=== PATIENT | female | born 2000 | race African-American/Black ===

== ENCOUNTER → 2021-03-08 | Outpatient (CLI) | payer MEDICAID ==
--- NOTE | 2021-03-08 11:53 | RAD ---
EXAM: Pelvic sonogram. HISTORY: Irregular menses status post elective . TECHNIQUE: Transabdominal and transvaginal sonographic imaging of the pelvis was performed. COMPARISON: None. FINDINGS: The uterus measures 7.2 x 4.2 x 3.2 cm. The endometrial stripe measures 6.9 mm in thickness . The ovaries are normal in size and demonstrate normal blood flow. There are multiple ovarian follic les. There is a physiologic dominant right ovarian follicle measuring 1.4 cm. There is trace pelvic f ree fluid. IMPRESSION: 1. 1.4 cm physiologic dominant right ovarian follicle and physiologic trace pelvic free fluid. 2. Otherwise, unremarkable pelvic sonogram. Electronically signed by: Isabell Cruz MD (03/08/2021 11:51 AM) [id number]
== END ==
LOC: US 11:00
PROVIDERS: ATTEND Family Medicine
DX: N92.6 Irregular menstruation, unspecified (principal); Z98.890 Other specified postprocedural states
CPT/HCPCS: 76830; 76856

== ENCOUNTER 2021-05-23 03:07 | Emergency (ER) | payer MEDICAID, OTHER ==
[~2021-05-23] VITALS: Ht 157.5 cm; Wt 92.0 kg
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
[2021-05-23 03:15] VITALS: BP 112/70
[2021-05-23] MEDS ORDERED: ONDA4TAB7 PO (04:50)
[2021-05-23] MEDS ORDERED: HYDR-2155 PO (04:51)
[2021-05-23 04:57] LABS: BASO % 1 % (0-3); EOS % 0 % (0-3); HEMATOCRIT 31.6 % (36.0-47.0); HEMOGLOBIN 10.3 g/dL (12.0-15.5); LYMPH # 1.1 x10^3/uL (1.0-4.8); LYMPH % 14 % (24-48); MEAN CORPUSCULAR HEMOGLOBIN 28 pg (25-35); MEAN CORPUSCULAR HGB CONC 32 g/dL (31-37); MEAN CORPUSCULAR VOLUME 86 fL (79-100); MONO # 0.3 x10^3/uL (0.0-1.1); MONO % 4 % (0-9); NEUT # 6.5 x10^3uL (1.8-7.7); NEUT % 81 % (31-73); PLATELET COUNT 186 x10^3/uL (140-400); RED CELL DISTRIBUTION WIDTH 13.7 % (11.5-14.5)
[2021-05-23] MEDS ORDERED: FAMOTIDINE 20 MG/2 ML VIAL IVP ONE (05:00)
[2021-05-23] MEDS ORDERED: IV RINGERS SOLUTION,LACTATED 1,000 ML IV SCH (05:00)
[2021-05-23] MEDS ORDERED: ONDANSETRON PF 4 MG/2 ML VIAL. IVP ONE ×2 (05:00→08:30)
--- NOTE | 2021-05-23 05:00 | EKG ---
[address] [address] Test Date: 2021-05-23 Test Time: 03:52:40 Pat Name: STEVE BRAND Department: Room: Gender: F Hospital Social Worker: : 2000 Requested By: AISHWARYA POE Order Number: [id number] Reading MD: Measurements Intervals [place] Rate: 71 P: 38 PA: 148 QRS: 31 QRSD: 82 T: 51 QT: 444 QTc: 483 Interpretive Statements SINUS RHYTHM T ABNORMALITY IN ANTEROSEPTAL LEADS PROLONGED QT ABNORMAL ECG RI6.02 No previous ECG available for comparison
[2021-05-23 05:06] LABS: CALCIUM 9.3 mg/dL (8.5-10.1); CREATININE 0.7 mg/dL (0.6-1.0); GFR 130.4; POTASSIUM 3.4 mmol/L (3.5-5.1)
[2021-05-23 05:11] LABS: DIRECT BILIRUBIN 0.1 mg/dL (0.0-0.2); TOTAL BILIRUBIN 0.3 mg/dL (0.2-1.0); TOTAL PROTEIN 7.9 g/dL (6.4-8.2)
[2021-05-23 06:38] LABS: INFLUENZA A PATIENT NEGATIVE (NEGATIVE); INFLUENZA B PATIENT NEGATIVE (NEGATIVE)
--- NOTE | 2021-05-23 08:00 | RAD ---
Study: US OB <14 WKS +TV DATE: 05/23/2021 6:40 AM INDICATION: Abdominal pain. Bleeding. Positive test. COMPARISON: Pelvic ultrasound 03/08/2021 TECHNIQUE: Transabdominal and transvaginal ultrasonography of the pelvis was performed. Color Doppler and duplex were utilized as appropriate. FINDINGS: Reported beta hCG of 988. The uterus measures 8.8 x 5.9 x 4.8 cm. Thickened and heterogeneous endometrium measuring up to 1.9 c m near the fundal tip and potentially with hemorrhage along the canal. No well delineated intrauterin e gestational sac. Unremarkable myometrium. The cervix measures 4 cm in length. The right ovary measures 3.5 x 1.4 x 1.6 cm and the left ovary 2.7 x 2.5 x 1.3 cm. Doppler flow is ma intained to both ovaries. No complex cyst or mass at either adnexa. A few follicles. No free pelvic fluid. IMPRESSION: Thickened endometrium likely with blood products along the endometrial canal. No intrauterine gestati onal sac is identified or abnormality at either adnexa to indicate an ectopic. Based on the beta HCG, a gestational sac would not be expected to be seen but given potential hemorrhage along the canal, a failed first trimester is the leading concern. Follow-up is needed such as in two weeks, o r sooner if there is persistent bleeding, and trending of the beta HCG. Electronically signed by: ADELINE HYATT MD (05/23/2021 7:57 AM) [facility]
[2021-05-24 20:13] LABS: CHLAMYDIA PROBE Negative (Negative)
== END 2021-05-23 08:34 | disposition home or self-care (01) ==
LOC: ER 03:07
DX: O36.4XX0 Maternal care for intrauterine death, not applicable or unspecified (principal); O21.9 Vomiting of pregnancy, unspecified; O99.011 Anemia complicating pregnancy, first trimester; D64.9 Anemia, unspecified; Z3A.09 9 weeks gestation of pregnancy; Z20.822 Contact with and (suspected) exposure to COVID-19
CPT/HCPCS: 36415; 76801; 76817; 80048; 80076; 81025; 82550; 83690; 84484; 84702; 85025; 86900; 86901; 87426; 87491; 87591; 87804; 93005; 96361; 96374; 96375; 96376; 99285; C9803; J2405; J3490; J7120; U0003

== ENCOUNTER 2021-06-12 21:00 | Emergency (ER) | payer OTHER ==
[~2021-06-12] VITALS: Ht 157.5 cm; Wt 84.5 kg
[~2021-06-12 21:00] MED LIST: HYDR-2155 PO; ONDA4TAB7 PO
--- NOTE | 2021-06-12 21:06 | PHYS DOC ---
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 [] HENT: Normocephalic, atraumatic, bilateral external ears normal, oropharynx moist, no oral exudates, nose normal. [] Eyes: conjunctiva normal, no discharge. [] Neck: Normal range of motion, no tenderness, supple, no stridor. [] Cardiovascular:Heart rate regular rhythm, no murmur [] Lungs & Thorax: Bilateral breath sounds clear to auscultation [] Abdomen: soft, no tenderness, no masses, no pulsatile masses. [] Skin: Warm, dry, no erythema, no rash. [] Back: No tenderness, no CVA tenderness. [] Extremities: No tenderness, no cyanosis, no clubbing, ROM intact, no edema. [] Neurologic: Alert and oriented X 3, normal motor function, normal sensory function, no focal deficits noted. [] Psychologic: Affect normal, judgement normal, mood normal. [] EKG EKG [] Radiology/Procedures Radiology/Procedures [] Heart Score C/O Chest Pain: No Risk Factors: Risk Factors: DM, Current or recent (<one month) smoker, HTN, HLP, family history of CAD, obesity. Risk Scores: Risk Factors: DM, Current or recent (<one month) smoker, HTN, HLP, family history of CAD, obesity. Course & Med Decision Making Course & Med Decision Making Patient is a 20-year-old female presents with abnormal menses Dragon Disclaimer Dragon Disclaimer This electronic medical record was generated, in whole or in part, using a voice recognition dictation system. Departure Departure: Referrals: RICKI SERNA (PCP) ABDIRASHID KATE MD Jun 12, 2021 21:06
[2021-06-12 22:04] VITALS: BP 144/81
[2021-06-12] MEDS ORDERED: IV NORMAL SALINE 1,000ML 1,000 ML IV ONE (23:00)
[2021-06-12] MEDS ORDERED: ACETAMINOPHEN 500 MG TABLET PO ONE (23:00)
[2021-06-12] MEDS ORDERED: ONDANSETRON PF 4 MG/2 ML VIAL. IVP ONE (23:00)
[2021-06-12 23:45] LABS: BASO % 1 % (0-3); EOS % 0 % (0-3); HEMATOCRIT 36.2 % (36.0-47.0); HEMOGLOBIN 11.4 g/dL (12.0-15.5); LYMPH # 0.9 x10^3/uL (1.0-4.8); LYMPH % 16 % (24-48); MEAN CORPUSCULAR HEMOGLOBIN 27 pg (25-35); MEAN CORPUSCULAR HGB CONC 31 g/dL (31-37); MEAN CORPUSCULAR VOLUME 85 fL (79-100); MONO # 0.4 x10^3/uL (0.0-1.1); MONO % 8 % (0-9); NEUT # 4.2 x10^3uL (1.8-7.7); NEUT % 75 % (31-73); PLATELET COUNT 268 x10^3/uL (140-400); RED BLOOD COUNT 4.25 x10^6/uL (3.50-5.40); RED CELL DISTRIBUTION WIDTH 13.9 % (11.5-14.5); WHITE BLOOD COUNT 5.6 x10^3/uL (4.0-11.0)
[2021-06-12 23:49] LABS: CALCIUM 9.9 mg/dL (8.5-10.1); CREATININE 0.7 mg/dL (0.6-1.0); GFR 130.4; POTASSIUM 3.7 mmol/L (3.5-5.1)
[2021-06-12 23:57] LABS: ALBUMIN 4.4 g/dL (3.4-5.0); TOTAL BILIRUBIN 0.3 mg/dL (0.2-1.0)
[2021-06-13] LABS: INFLUENZA A PATIENT NEGATIVE (NEGATIVE); INFLUENZA B PATIENT NEGATIVE (NEGATIVE)
--- NOTE | 2021-06-13 00:45 | RAD ---
US OB <14 WKS +TV History: Reason: vag bleeding in / Spl. Instructions: REPORTED SAB MID MAY, POSITIVE U RINE / History: Comparison: None. Technique: Grayscale and color Doppler imaging of the pelvis was performed using transabdominal and t ransvaginal technique. Findings: The uterus measures 8.3 x 5.0 x 4.4 cm. Heterogeneous thickened endometrium measures up to 1.8 cm. There is increased vascularity within the endometrium. No evidence of intrauterine gestational sac. Right ovary measures 3.3 x 3.8 x 1.3 cm. Left ovary measures 3.8 x 2.7 x 1.3 cm. Normal Doppler flow to the ovaries bilaterally. No adnexal masses are seen. Small free fluid within t he pelvis. IMPRESSION: 1. Heterogeneous thickened endometrium with increased vascularity, can be seen with retained product s of conception. Recommend further clinical evaluation and ultrasound follow-up. Electronically signed by: Vijay Moralez DO (06/13/2021 12:42 AM) [facility]
[2021-06-13] MEDS ORDERED: CEPH500C PO (01:09)
[2021-06-13] MEDS ORDERED: CEPHALEXIN 250 MG CAPSULE PO ONE (01:15)
[2021-06-13] MEDS ORDERED: METOCLOPRAMIDE 10 MG TABLET PO ONE (01:15)
[2021-06-13] MEDS ORDERED: ONDANSETRON 4MG ODT 4TABLET STARTPACK. PO ONE (01:15)
[2021-06-13 02:30] LABS: BILIRUBIN,URINE SMALL (NEG); CLARITY,URINE CLEAR; COLOR,URINE YELLOW; GLUCOSE,URINE NEG (NEG)
[2021-06-13 02:31] LABS: BACTERIA,URINE FEW /HPF (0-FEW); NITRITE,URINE NEG (NEG); RBC,URINE OCC /HPF (0-2); SQUAMOUS EPITHELIAL CELL,UR FEW /LPF
[2021-06-14 16:07] LABS: CHLAMYDIA PROBE Negative (Negative)
== END 2021-06-13 01:40 | disposition home or self-care (01) ==
LOC: ER 21:00
DX: U07.1 COVID-19 (principal); N92.6 Irregular menstruation, unspecified; Z88.8 Allergy status to other drugs, medicaments and biological substances
CPT/HCPCS: 36415; 76801; 76817; 80053; 81001; 81025; 83605; 84702; 85025; 87040; 87426; 87491; 87591; 87804; 96361; 96374; 99284; C9803; J2405; J7030; Q0111; Q0162; U0003

== ENCOUNTER 2021-09-25 15:22 | Emergency (ER) | payer OTHER ==
[~2021-09-25] VITALS: Ht 157.5 cm; Wt 89.4 kg
[~2021-09-25 15:22] MED LIST changes: +CEPH500C PO
--- NOTE | 2021-09-25 16:00 | PHYS DOC ---
Past History Additional Past Medical Histor: environmental allergies Past Surgical History: Other Additional Past Surgical Histo: D & C Alcohol Use: None Social History Narrative: last used yesterday General Adult EDM: Chief Complaint: ABDOMINAL PAIN IN HPI: HPI: 20-year-old female presents with abdominal pain. The patient went to urgent care and just found out that she is . She has been having cramping upper abdominal pain for the last 3 days. The pain is mild to moderate in intensity. The patient was and had a miscarriage back in May. She is not sure when her last period was. She has not been consistent since May. She went to the urgent care today for abdominal pain and they found her to be . They sent her here abdomen concern for ectopic . Patient denies fever or chills. Review of Systems: Review of Systems: Constitutional: Denies fever or chills Eyes: Denies change in visual acuity HENT: Denies nasal congestion or sore throat Respiratory: Denies cough or shortness of breath Cardiovascular: Denies chest pain or edema GI: Upper abdominal pain. Denies nausea, vomiting, bloody stools or diarrhea : Denies dysuria Musculoskeletal: Denies back pain or joint pain Integument: Denies rash Neurologic: Denies headache, focal weakness or sensory changes Endocrine: Denies polyuria or polydipsia Lymphatic: Denies swollen glands Psychiatric: Denies depression or anxiety Current Medications: Current Meds: Current Medications Medications (Trade) Dose Ordered Sig/Yeny Start Time Stop Time Status Last Admin Dose Admin Sodium Chloride 1,000 ml @ 1,000 mls/hr 1X ONCE 09/25/21 15:45 09/25/21 16:44 Allergies: Allergies: Allergies Coded Allergies Type Severity Reaction Last Updated Verified cat dander Allergy Unknown 09/25/21 Yes grass pollen Allergy Unknown 09/25/21 Yes mold Allergy Unknown 09/25/21 Yes Uncoded Allergies Type Severity Reaction Last Updated Verified TREES Allergy Unknown 09/25/21 Physical Exam: PE: Constitutional: Well developed, well nourished, no acute distress, non-toxic appearance. [] HENT: Normocephalic, atraumatic, bilateral external ears normal, oropharynx moist, no oral exudates, nose normal. [] Eyes: PERRLA, EOMI, conjunctiva normal, no discharge. [] Neck: Normal range of motion, no tenderness, supple, no stridor. [] Cardiovascular: Heart rate regular rhythm, no murmur [] Lungs & Thorax: Bilateral breath sounds clear to auscultation [] Abdomen: Bowel sounds normal, soft, upper tenderness, no masses, no pulsatile masses. [] Skin: Warm, dry, no erythema, no rash. [] Back: No tenderness, no CVA tenderness. [] Extremities: No tenderness, no cyanosis, no clubbing, ROM intact, no edema. [] Neurologic: Alert and oriented X 3, normal motor function, normal sensory function, no focal deficits noted. [] Psychologic: Affect normal, judgement normal, mood normal. [] Current Patient Data: Vital Signs: Vital Signs Date Time Temp Pulse Resp B/P (MAP) Pulse Ox O2 Delivery O2 Flow Rate FiO2 09/25/21 15:33 98.7 96 18 132/72 (92) 100 Room Air EKG: EKG: [] Radiology/Procedures: Radiology/Procedures: [] Heart Score: C/O Chest Pain: N/A Risk Factors: Risk Factors: DM, Current or recent (<one month) smoker, HTN, HLP, family history of CAD, obesity. Risk Scores: Score 0 - 3: 2.5% MACE over next 6 weeks - Discharge Home Score 4 - 6: 20.3% MACE over next 6 weeks - Admit for Clinical Observation Score 7 - 10: 72.7% MACE over next 6 weeks - Early Invasive Strategies Course & Med Decision Making: Course & Med Decision Making Pertinent Labs and Imaging studies reviewed. (See chart for details) The patient's labs are unremarkable. Her urinalysis is negative for infection. She is . Her hCG is over 19,000. Ultrasound shows a gestational sac and a yolk sac. No embryo or heartbeat at this time. This could be very early . The patient will need to follow-up with her doctor and have repeat ultrasounds. She is not having any bleeding at this time. She is stable for discharge. [] Dragon Disclaimer: Dragon Disclaimer: This electronic medical record was generated, in whole or in part, using a voice recognition dictation system. Departure Departure: Impression: Primary Impression: Qualified Codes: Z3A.01 - Less than 8 weeks gestation of Disposition: HOME / SELF CARE / HOMELESS Condition: STABLE Referrals: RICKI SERNA (PCP) Patient Instructions: - First Trimester, [id number] MANDO NETTLES DO Sep 25, 2021 16:00
[2021-09-25] MEDS: IV NORMAL SALINE 1,000ML 1,000 ML IV ONE (16:13)
[2021-09-25 16:59] LABS: BASO % 1 % (0-3); EOS # 0.1 x10^3/uL (0.0-0.7); EOS % 3 % (0-3); HEMATOCRIT 37.6 % (36.0-47.0); LYMPH # 1.3 x10^3/uL (1.0-4.8); LYMPH % 36 % (24-48); MEAN CORPUSCULAR HEMOGLOBIN 28 pg (25-35); MEAN CORPUSCULAR HGB CONC 32 g/dL (31-37); MEAN CORPUSCULAR VOLUME 87 fL (79-100); MONO # 0.5 x10^3/uL (0.0-1.1); MONO % 14 % (0-9); NEUT # 1.7 x10^3uL (1.8-7.7); NEUT % 47 % (31-73); PLATELET COUNT 164 x10^3/uL (140-400); RED BLOOD COUNT 4.32 x10^6/uL (3.50-5.40); RED CELL DISTRIBUTION WIDTH 14.4 % (11.5-14.5); WHITE BLOOD COUNT 3.6 x10^3/uL (4.0-11.0)
[2021-09-25 17:12] LABS: CLARITY,URINE CLEAR; COLOR,URINE YELLOW; GLUCOSE,URINE NEG (NEG)
[2021-09-25 17:13] LABS: BACTERIA,URINE 0 /HPF (0-FEW); NITRITE,URINE NEG (NEG); RBC,URINE 0 /HPF (0-2); SQUAMOUS EPITHELIAL CELL,UR OCC /LPF; UROBILINOGEN,URINE 0.2 mg/dL (0.2 mg/dL); WBC,URINE 0 /HPF (0-4)
[2021-09-25 17:27] LABS: CALCIUM 9.2 mg/dL (8.5-10.1); CREATININE 0.7 mg/dL (0.6-1.0); GFR 130.4; POTASSIUM 3.8 mmol/L (3.5-5.1)
[2021-09-25 17:33] LABS: ALBUMIN 3.7 g/dL (3.4-5.0); ALBUMIN/GLOBULIN RATIO 0.8 (1.0-1.7); TOTAL BILIRUBIN 0.3 mg/dL (0.2-1.0); TOTAL PROTEIN 8.4 g/dL (6.4-8.2)
[2021-09-25 18:13] VITALS: BP 125/72
--- NOTE | 2021-09-25 18:16 | RAD ---
OB ultrasound dated 09/25/2021. COMPARISON: None. INDICATION: Abdominal pain. FINDINGS: Transabdominal pelvic ultrasound was performed. Gestational sac identified within the endometrial can al with mean sac diameter measuring 1.0 cm, correlating with a 5 week 5 day gestation. No pole visualized at this time. There is a well-formed yolk sac. No cardiac activity. No subchorionic collection. Right ovary measures 4.2 x 3.9 x 2.0 cm. Left ovary measures 3.4 x 2.1 x 2.0 cm. No adnexal mass or f ree fluid. IMPRESSION: 1. There is gestational sac and yolk sac within the endometrial canal with no discernible pole or cardiac activity. This is indeterminate whether this is related to blighted ovum or or early viabl e IUP at about 5 weeks 5 day gestation. Correlate clinically with follow-up ultrasound if indicated. 2. No apparent adnexal mass or free fluid. Electronically signed by: Ronald Samano MD (09/25/2021 6:13 PM) [facility]
== END 2021-09-25 18:15 | disposition home or self-care (01) ==
LOC: ER 15:22
DX: O26.891 Other specified pregnancy related conditions, first trimester (principal); R10.10 Upper abdominal pain, unspecified; Z3A.01 Less than 8 weeks gestation of pregnancy
CPT/HCPCS: 36415; 76801; 76817; 80053; 81001; 84702; 85025; 96360; 96361; 99284; J7030